=== PATIENT | female | born 1985 | race African-American/Black ===

== ENCOUNTER 2020-04-26 13:10 | Emergency (ER) | payer SELFPAY ==
--- NOTE | 2020-04-26 15:18 | PC.NURSE ---
x1 call for triage-no answer.
== END 2020-04-26 17:20 | disposition left against medical advice (07) ==
PROVIDERS: Emergency Provider Emergency Medicine
DX: M25.519 Pain in unspecified shoulder (principal); M54.2 Cervicalgia
CPT/HCPCS: 99281

== ENCOUNTER 2020-04-27 05:14 | Emergency (ER) | payer SELFPAY ==
--- NOTE | 2020-04-27 | XR_ITS ---
EXAMINATION: SHOULDER 4 VIEWS, RIGHT CLINICAL INFORMATION: Right shoulder pain following injury. COMPARISON: None. TECHNIQUE: AP views of the right shoulder were obtained in internal and external rotation. In addition, axillary and Y views were obtained. FINDINGS: There are no fractures or dislocations. The humeral head is seated within a well-formed glenoid. The AC joint is intact. XR/XR shoulder RT min 2V IMPRESSION: Unremarkable right shoulder radiographs.
[2020-04-27 05:27] VITALS: BP 104/65; PULSE 74; RESP 18; TEMP 36.8; O2SAT 99; BMI 25.0
--- NOTE | 2020-04-27 06:46 | ED.EXTPRO ---
HPI - Extremity Problem General Chief complaint: Extremity Injury, Upper Stated complaint: Shoulder pain Time Seen by Provider: 04/27/20 06:46 Source: patient Mode of arrival: ambulatory Limitations: no limitations History of Present Illness HPI Narrative: heavy lifting x 12 hours at her job feels tight area need her shower Complaint: extremity pain Onset (ago): day(s) (yesterday) Pain Consistency: constant Location: right Quality: aching Radiation: none Relieving factors: nothing Exacerbating factors: range of motion Associated symptoms: denies other symptoms Related Data Previous Rx's Medication Instructions Recorded cyclobenzaprine 10 mg PO TID PRN #14 tab 04/27/20 ibuprofen 600 mg PO Q6H PRN #30 tab 04/27/20 lidocaine 1 patch TOPICAL DAILY PRN #10 ea 04/27/20 Allergies Allergy/AdvReac Type Severity Reaction Status Date / Time codeine [CODEINE] Allergy Unknown NAUSEA AND Unverified 01/21/20 19:16 SWEATS Review of Systems Review of Systems: Constitutional : No Fever, No Chills ENT/Mouth : No Ear Pain, No Hoarseness, No sore throat Eyes: No Eye Pain, No Swelling, No Redness, No Foreign Body Cardiovascular : No Chest Pain, No SOB Respiratory : No Cough, No Dyspnea Gastrointestinal : No Nausea, No Vomiting, No Diarrhea, No abdominal Pain Genitourinary : No Dysuria, No Hematuria Musculoskeletal : positive joint pain, No Myalgias, No Joint Swelling Skin : No Skin lacerations, No rash Neuro : No Weakness, No Numbness, No Loss of Consciousness, No Dizziness, No Headache PMFSH Past Medical History Attestation statement: The following information was validated with the patient. Medical History (Updated 04/27/20 @ 06:47 by Mayra Anaya DO) No active medical problems Social History Social History Smoked in Last 30 Days: No Use of substances other than those prescribed or required for medical reasons: No Advance Directives: No Advance Directives Information Provided: No Physical Exam Vital Signs: Vital Signs: Last Vital Signs Temp 98.2 F 04/27/20 05:27 Pulse 74 04/27/20 05:27 Resp 18 04/27/20 05:27 BP 104/65 04/27/20 05:27 Pulse Ox 99 04/27/20 05:27 Body Mass Index 25.0 Appearance: Alert. Oriented X3. No acute distress. Eyes: Pupils equal, round and reactive to light. ENT: Pharynx normal. Neck: Normal inspection. Neck supple. CVS: Normal heart rate and rhythm. Pulses normal. Respiratory: No respiratory distress. Breath sounds normal. Abdomen: Soft and nontender. Skin: Skin warm and dry. Normal skin color. Normal skin turgor. Extremities: No lower extremity edema. No calf ttp normal ROM of R arm no crepitus, distal NV intact, spasm of R trapezius negative Spurling maneuver Neuro: Oriented X 3. No motor deficit. No sensory deficit. MDM - Extremity (Nontraumatic) MDM Narrative Medical decision making narrative: 34 yo female healthy repetitive lifting at her job causing R trapezius strain will need supportive medications, NV intact, no concern for trauma or fracture, stable for DC Discharge Plan Discharge Clinical Impression: Trapezius muscle strain Qualifiers: Encounter type: initial encounter Laterality: right Qualified Code(s): S46.811A - Strain of other muscles, fascia and tendons at shoulder and upper arm level, right arm, initial encounter Patient Disposition: Home, Self-Care Instructions: Muscle Strain (ED) Additional Instructions: return to ED for any worsening symptoms or concerns Prescriptions: New cyclobenzaprine 10 mg tablet 10 mg PO TID PRN (Reason: muscle spasm) Qty: 14 RF: 0 lidocaine 4 % adhesive patch,medicated 1 patch topical DAILY PRN (Reason: pain) Qty: 10 RF: 0 ibuprofen 600 mg tablet 600 mg PO Q6H PRN (Reason: pain) Qty: 30 RF: 0 Referrals: Physician,Unknown [Primary Care Provider] - 2 days (if not better) Stand Alone Forms: Work/School Release
== END 2020-04-27 07:49 | disposition home or self-care (01) ==
PROVIDERS: Emergency Provider Emergency Medicine
DX: S46.811A Strain of other muscles, fascia and tendons at shoulder and upper arm level, right arm, initial encounter (principal); X50.0XXA Overexertion from strenuous movement or load, initial encounter; Y93.9 Activity, unspecified; Y92.9 Unspecified place or not applicable; Y99.0 Civilian activity done for income or pay
CPT/HCPCS: 73030; 99283; 99284

== ENCOUNTER 2020-07-07 17:07 | Emergency (ER) | payer OTHER, SELFPAY ==
--- NOTE | ~2020-07-07 | XR_ITS ---
EXAMINATION: LUMBOSACRAL SPINE 3 VIEWS AND RIGHT KNEE 4 VIEWS CLINICAL INFORMATION: Pain COMPARISON: None TECHNIQUE: As above nonweightbearing FINDINGS: Lumbar spine: Loss of normal lumbar lordosis. No fracture subluxation. No spondylolysis. Minor scoliosis convex left. Transverse processes intact. Disc spaces preserved. Right knee: No effusion. Joint spaces maintained. No focal bony lesion. XR/XR lumbar spine 2-3V IMPRESSION: No focal abnormality.
--- NOTE | ~2020-07-07 | XR_ITS ---
EXAMINATION: LUMBOSACRAL SPINE 3 VIEWS AND RIGHT KNEE 4 VIEWS CLINICAL INFORMATION: Pain COMPARISON: None TECHNIQUE: As above nonweightbearing FINDINGS: Lumbar spine: Loss of normal lumbar lordosis. No fracture subluxation. No spondylolysis. Minor scoliosis convex left. Transverse processes intact. Disc spaces preserved. Right knee: No effusion. Joint spaces maintained. No focal bony lesion. XR/XR knee RT 2V IMPRESSION: No focal abnormality.
[2020-07-07 17:13] VITALS: BP 112/56; PULSE 92; RESP 18; TEMP 36.9; O2SAT 100
[2020-07-07 17:28] VITALS: BP 123/62; PULSE 86; RESP 16; TEMP 37.2; O2SAT 100; BMI 27.1
--- NOTE | 2020-07-07 17:31 | ED_ITS ---
HPI - Back Pain/Injury General Chief Complaint: Back Pain/Injury Stated Complaint: low back pain and knee pain Time Seen by Provider: 07/07/20 17:29 Source: patient Mode of arrival: ambulatory Limitations: no limitations History of Present Illness HPI Narrative: 31-year-old female with no significant past medical history presents for lower back pain and right knee pain. 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 She does have bilateral lower lumbar tenderness does not describe any specific injury or trauma. She has a very physically demanding job and lifts heavy objects on a daily basis. She does not report any symptoms indicating cauda equina, fevers, chills, chest pain, pressure, palpitations, shortness of breath, abdominal pain, abdominal distention, dysuria, hematuria, any other concerning symptoms. MD elicited complaint: back pain and other (Right knee pain) Onset (ago): month(s) (1) Timing: constant Severity: moderate Similar Symptoms Previously: Yes Quality: aching Radiation: none Exacerbating factors: movement and walking Context: while lifting and turning/twisting Associated symptoms: denies other symptoms Treatments prior to arrival: cold therapy and NSAIDS Work related injury: Yes Related Data Previous Rx's Medication Instructions Recorded cyclobenzaprine 10 mg PO TID PRN #14 tab 04/27/20 ibuprofen 600 mg PO Q6H PRN #30 tab 04/27/20 lidocaine 1 patch TOPICAL DAILY PRN #10 ea 04/27/20 cyclobenzaprine 10 mg PO TID PRN #20 tab 07/07/20 ibuprofen 600 mg PO Q8H PRN #60 tab 07/07/20 lidocaine 2 patch TOPICAL DAILY #30 ea 07/07/20 Allergies Allergy/AdvReac Type Severity Reaction Status Date / Time codeine [CODEINE] Allergy Unknown NAUSEA AND Unverified 01/21/20 19:16 SWEATS Review of Systems Review of Systems: Constitutional: No Fever, No Chills ENT/Mouth: No Ear Pain, No Hoarseness, No sore throat Eyes: No Eye Pain, No Swelling, No Redness, No Foreign Body Cardiovascular: No Chest Pain, No SOB Respiratory: No Cough, No Dyspnea Gastrointestinal: No Nausea, No Vomiting, No Diarrhea, No abdominal Pain Genitourinary: No Dysuria, No Hematuria Musculoskeletal: positive lower back and right knee pain, No Myalgias, No Joint Swelling Skin: No Skin lacerations, No rash Neuro: No Weakness, No Numbness, No Paresthesias, No Loss of Consciousness, No Dizziness, No Headache Psych: No Anxiety/Panic, No Depression Heme/Lymph: no easy bruising, no Lymphadenopathy Endocrine: No Polyuria, No Polydipsia Yes all other systems are reviewed and are negative [facility] Past Medical History Attestation statement: The following information was validated with the patient. Source: old records reviewed Medical History No active medical problems Social History Social History Alcohol intake: never Smoking Status: Current every day smoker Use of substances other than those prescribed or required for medical reasons: No Any prior treatment program specific to substance use: No Advance Directives: No Advance Directives Information Provided: Yes Physical Exam Vital Signs: Vital Signs: Last Vital Signs Temp 99 F 07/07/20 17:28 Pulse 86 07/07/20 17:28 Resp 16 07/07/20 17:28 BP 123/62 07/07/20 17:28 Pulse Ox 100 07/07/20 17:28 Body Mass Index 27.1 Appearance: Alert. Oriented X3. No acute distress. Eyes: Pupils equal, round and reactive to light. ENT: Pharynx normal. Neck: Normal inspection. Neck supple. CVS: Normal heart rate and rhythm. Pulses normal. Respiratory: No respiratory distress. Breath sounds normal. Abdomen: Soft and nontender. Skin: Skin warm and dry. Normal skin color. Normal skin turgor. Extremities: Normal range of motion, tenderness noted to the medial and lateral right patella. Musculoskeletal tenderness to palpation to bilateral lumbar, no vertebral tenderness to palpation. Neuro: No motor deficit. No sensory deficit. Course Course Course Narrative: 35-year-old female with right knee and lower back pain. 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 Will order x-rays, provide Lidoderm patch and ibuprofen. 6:34 p.m. x-rays are negative for fracture, effusion or acute finding. Plan of care is to discharge home with supportive measures. Patient verbalized understanding of and agrees plan of care to discharge home. MDM - Back Pain/Injury MDM Narrative Medical decision making narrative: Knee effusion, knee sprain, ligament injury Differential Diagnosis Differential diagnosis: Likely lumbar radiculopathy and strain of lumbar region Medical Records Attestation: I reviewed the patient's medical records. Lab Data Attestation: I reviewed the patient's lab results. Imaging Data Lumbar and right knee x-ray: Attestation: I personally reviewed and interpreted this imaging study as follows: Radiologist's impression: EXAMINATION: LUMBOSACRAL SPINE 3 VIEWS AND RIGHT KNEE 4 VIEWS CLINICAL INFORMATION: Pain COMPARISON: None TECHNIQUE: As above nonweightbearing FINDINGS: Lumbar spine: Loss of normal lumbar lordosis. No fracture subluxation. No spondylolysis. Minor scoliosis convex left. Transverse processes intact. Disc spaces preserved. Right knee: No effusion. Joint spaces maintained. No focal bony lesion. XR/XR lumbar spine 2-3V IMPRESSION: No focal abnormality. Discharge Plan Discharge Clinical Impression: Strain of lumbar region Qualifiers: Encounter type: initial encounter Qualified Code(s): S39.012A - Strain of muscle, fascia and tendon of lower back, initial encounter Strain of right patellar tendon Qualifiers: Encounter type: initial encounter Qualified Code(s): S86.811A - Strain of other muscle(s) and tendon(s) at lower leg level, right leg, initial encounter Patient Disposition: Home, Self-Care Instructions: Acute Low Back Pain (ED), Knee Pain (ED), Tendinitis (ED), Patellar Tendinitis (ED) Additional Instructions: You were evaluated for right knee pain and lower back pain. X-rays negative for acute findings requiring emergent intervention. The right knee pain could be a tendon injury. If pain persists please follow-up with orthopedics. We prescribed Lidoderm patches, cyclobenzaprine, and ibuprofen. Use these medications as directed. Cyclobenzaprine as a muscle relaxer and has high risk for falls, decreased reaction time, and drowsiness. Do not drive or operate machinery while taking this medication. Thank you for choosing this emergency department for evaluation. Please follow-up with primary care physician as needed. Return to the emergency department for any new, concerning, or worsening symptoms. Prescriptions: New lidocaine 5 % adhesive patch,medicated 2 patch topical DAILY Qty: 30 RF: 0 cyclobenzaprine 10 mg tablet 10 mg PO TID PRN (Reason: muscle spasm) Qty: 20 RF: 0 ibuprofen 600 mg tablet 600 mg PO Q8H PRN (Reason: pain) Qty: 60 RF: 0 No Action cyclobenzaprine 10 mg tablet 10 mg PO TID PRN (Reason: muscle spasm) Qty: 14 RF: 0 lidocaine 4 % adhesive patch,medicated 1 patch topical DAILY PRN (Reason: pain) Qty: 10 RF: 0 ibuprofen 600 mg tablet 600 mg PO Q6H PRN (Reason: pain) Qty: 30 RF: 0 Referrals: Ida Blackman PA-C [Physician Wet Wash Assembler] - 2 days (Question of right patellar tendon injury) Stand Alone Forms: Work/School Release Interventions: ED Discharge Assessment Last Done: 07/07/20 20:12 Discharge Date/Time: 07/07/20 19:00
[2020-07-07] MEDS: Ibuprofen 600 MG TABLET PO (18:25)
[2020-07-07] MEDS: Lidocaine 4 % Patch ADH..PATCH 2 PATCH TRANSDERMA (18:25)
== END 2020-07-07 19:00 | disposition home or self-care (01) ==
PROVIDERS: Emergency Provider Emergency Medicine
DX: S39.012A Strain of muscle, fascia and tendon of lower back, initial encounter (principal); S86.811A Strain of other muscle(s) and tendon(s) at lower leg level, right leg, initial encounter; M25.561 Pain in right knee; Z79.899 Other long term (current) drug therapy; F17.200 Nicotine dependence, unspecified, uncomplicated; X50.0XXA Overexertion from strenuous movement or load, initial encounter; X50.3XXA Overexertion from repetitive movements, initial encounter; Y93.9 Activity, unspecified; Y92.9 Unspecified place or not applicable; Y99.0 Civilian activity done for income or pay; Z71.6 Tobacco abuse counseling
CPT/HCPCS: 72100; 73560; 99284

== ENCOUNTER 2021-02-23 06:27 | Emergency (ER) | payer OTHER, SELFPAY ==
[2021-02-23 06:37] VITALS: BP 124/55; RESP 16; TEMP 36.3; O2SAT 100; BMI 25.0
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
== END 2021-02-23 08:19 | disposition home or self-care (01) ==
PROVIDERS: Emergency Provider Emergency Medicine Emergency Medical Services
DX: S16.1XXA Strain of muscle, fascia and tendon at neck level, initial encounter (principal); M54.2 Cervicalgia; M54.50 Low back pain, unspecified; X50.0XXA Overexertion from strenuous movement or load, initial encounter; Y93.9 Activity, unspecified; Y92.410 Unspecified street and highway as the place of occurrence of the external cause; Y99.9 Unspecified external cause status; Z79.899 Other long term (current) drug therapy
CPT/HCPCS: 99283

== ENCOUNTER 2025-01-28 10:56 | Outpatient (AMB) | payer OTHER, SELFPAY ==
[2025-01-28 11:07] VITALS: BMI 25.8
--- NOTE | 2025-01-28 11:07 | MHC.OFFVIS ---
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 Patient reports he neck pain is primarily in the neck and radiates into her right shoulder and down to her right hand.. This is from a work injury that occurred on 12/15/24. The patient states that she had a similar mail injury which affected her left side in the past. She reports mild discomfort in her left shoulder. She reports intermittent weakness in her right arm as well. She has tried Tylenol, anti-inflammatory medicines and muscle relaxants which gave her minimal relief. 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 Physical Exam Vital Signs: BMI result Body Mass Index 25.8 Const Other: Well-nourished well-developed very friendly female awake alert and oriented x3 in no acute distress Neck Other: Cervical spine examination shows right-sided paraspinal muscle tenderness, pain with range of motion, positive Spurling's test, 4/5 strength with testing of her right wrist extensors and right elbow flexors when compared to 5/5 strength on her left side Results Reviewed Results Reviewed: X-rays of the patient's right shoulder show moderate to severe acromioclavicular joint narrowing, a type 2 acromion, no acute bony abnormalities X-rays of the patient's cervical spine show diffuse degenerative disc disease, no acute bony abnormalities Assessment & Plan Assessment & Plan (1) Neck pain on right side: Code(s): M54.2 - Cervicalgia Category: Medical Plan Ms. Cristina presents with progressively worsening neck pain which radiates down her right arm to her right hand as well as intermittent right upper extremity weakness possibly due to cervical stenosis versus a disc herniation. Thus, I will send the patient for an MRI of her cervical spine for further evaluation. I will contact her by phone once the MRI results are available. She also has right shoulder pain due to impingement syndrome and possible rotator cuff tearing. We will hold off on a shoulder MRI for now. The patient will continue with her activity modifications in the meantime. I spent 20 minutes in reviewing the patient's records and imaging studies, seeing the patient and documenting in the medical record. Orders: Orders XR cervical spine 2V 01/28/25 M54.2 - Cervicalgia MR cervical spine wo con Today M54.2 - Cervicalgia XR shoulder RT min 2V 01/28/25 M25.511 - Pain in right shoulder Medications: Discontinued cyclobenzaprine Discontinued Reason: Patient Completed Course 10 mg PO TID PRN 20 tabs 0RF muscle spasm lidocaine 5% leave on most painful area for up to 12 hrs Discontinued Reason: Patient Completed Course 2 patches topical DAILY 30 ea 0RF cyclobenzaprine Discontinued Reason: Patient Completed Course 10 mg PO TID PRN 14 tabs 0RF muscle spasm lidocaine 4% may leave on for up to 12 hrs Discontinued Reason: Patient Completed Course 1 patch topical DAILY PRN 10 ea 0RF pain lidocaine 5% leave on most painful area for up to 12 hrs Discontinued Reason: Patient Completed Course 1 patch topical DAILY 15 ea 0RF cyclobenzaprine Discontinued Reason: Patient Completed Course 10 mg PO TID PRN 14 tabs 0RF muscle spasm Coding Level of Care Code New Pt Level 3 (46881) Complex EM visit Add On G2211 Diagnoses Neck pain on right side M54.2
== END 2025-01-28 11:37 | disposition home or self-care (01) ==
LOC: HO.HOS 10:56
PROVIDERS: Visit Provider Orthopaedic Surgery
DX: M54.2 Cervicalgia (principal)
CPT/HCPCS: 99204; G2211

== ENCOUNTER → 2025-01-28 10:58 | Outpatient (BNV) | payer OTHER, SELFPAY | PROVIDERS: Visit Provider Family Medicine | DX: M54.2 Cervicalgia (principal); M25.511 Pain in right shoulder | CPT/HCPCS: 72040; 73030 ==

== ENCOUNTER 2025-01-28 11:50 | Outpatient (REF) | payer OTHER, SELFPAY ==
--- NOTE | ~2025-01-28 | XR_ITS ---
CLINICAL HISTORY: M54.2 - Cervicalgia 4 views cervical spine Comparison: None provided Findings: Normal alignment. Multilevel intervertebral disc space narrowing and osteophyte formation. Prevertebral soft tissues within normal limits. IMPRESSION: No acute findings. This document has been electronically signed by: Jeff Jensen DO on 01/29/2025 12:36:00
--- NOTE | ~2025-01-28 | XR_ITS ---
CLINICAL HISTORY: M25.511 - Pain in right shoulder 2 view right shoulder Comparison: None provided Findings: No fractures or dislocations. No significant loss of joint space or osteophytes. No erosions. No radiopaque foreign body. IMPRESSION: 1. No acute findings This document has been electronically signed by: Jeff Jensen DO on 01/29/2025 12:35:46
--- OUTSIDE RECORDS SUMMARY | 2025-01-29 13:41 | XMS_ITS | Clinical Summary ---
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 Use in each nostril as directed 10/28/2023 Active valACYclovir (VALTREX) 500 mg tablet Take 1 Tablet by mouth daily. 10/28/2023 Active naproxen (NAPROSYN) 500 mg tablet Take 1 Tablet by mouth 2 times daily as needed for Pain. 03/12/2023 Active norethindrone (BROOKE,FLORINA,H EATHER,MICRONOR ) 0.35 mg tablet Take 1 Tablet by mouth daily for 28 doses. 12/24/2022 Active cholecalciferol (VITAMIN D-3) 25 mcg (1,000 unit) tablet Take by mouth. 10/10/2022 Active hydrOXYzine HCL (ATARAX) 10 mg tablet Take 1 Tablet by mouth 3 times daily as needed for Itching. 10/10/2022 Active oxyBUTYnin XL (DITROPAN-XL) 5 mg 24 hr tablet Take 1 Tablet by mouth daily. 03/01/2022 Active diclofenac (VOLTAREN) 75 mg EC tabletIndicatio ns:Tendinitis of left quadriceps tendon Take 1 tablet (75 mg total) by mouth 2 (two) times a day. Do not crush, chew, or split. 60 tablet 04/18/2024 Active cyclobenzaprine (FLEXERIL) 10 mg tablet Take 1 tablet (10 mg total) by mouth 2 (two) times a day if needed for muscle spasms for up to 5 days. 10 tablet 07/07/2024 Active Active Problems Problem Noted Date Diagnosed Date History of COVID-19 09/15/2021 Chronic benign neutropenia (CMS/HCC V24) 021 Overview (03/24/2024): Dr. Greer, 2019 Vitamin D deficiency 10/19/2019 Low iron 02/01/2017 Low vitamin B12 level 02/01/2017 Allergic rhinitis due to allergen 12/01/2014 Tobacco use disorder 12/01/2014 Lesion of liver 06/29/2014 Overview (03/24/2024): [facility] GI HSV-2 (herpes simplex virus 2) infection 015 PTSD (post-traumatic stress disorder) 06/29/2014 Anxiety 06/29/2014 Hyperlipemia 06/29/2014 Immunizations Name Administration Dates Next Due Hep B, Unspecified 10/31/2011 Tdap Tetanus diptheria acell ular pertussis (Boostrix; Adacel) 7yo and older 01/30/2017 Surgical History Surgery Date Site/Laterality Comments SECTION 2002 PROCEDURE: HISTORICAL DELIVERY Medical History Medical History Date Comments Lesion of liver 06/29/2014 DX:Lesion of jaycee er HSV-2 (herpes simplex virus 2) infection 06/29/2014 DX:HSV-2 (herpes simplex vir us 2) infection PTSD (post-traumatic stress disorder) 06/29/2014 DX:PTSD (post-traumatic stress disorder) Anxiety 06/29/2014 DX:Anxiety Chronic benign neutropenia ( CMS/HCC V24) 10/28/2020 DX:Chronic benign neutropeni a (HCC); COMMENT: Dr. Greer, 2019 Family History Medical History Relation Name Comments Arthritis Father Other: gout Father Dementia Maternal Grandmother Arthritis Mother Osteoporosis Mother thyroid disorde r Diabetes Paternal Grandfather Diabetes Paternal Grandmother Blindness Neg Hx cat, glau, mac degen, strabismus Relation Name Status Comments Father Alive Maternal Grandfather Maternal Grandmother Mother Alive Paternal Grandfather Paternal Grandmother Social History Tobacco Use Types Packs/Day Years Used Date Smoking Tobacco: Every Day Cigarettes Smokeless Tobacco: Never Alcohol Use Standard Drinks/Week Comments Yes 0 (1 standard drink = 0.6 oz pur e alcohol) socially Housing Instability Answer Date Recorde d Are you worried that in the next 2 months you may not have stable housing? No 06/16/2024 Food Access & Nutrition Answer Date Rec orded Do you have access to a vari ety of food including fruits and vegetables? Yes 06/16/2024 Access to Healthcare Answer Date Record ed Within the last 3 months, ho w many times did you visit the emergency department for your medical care? 0 06/16/2024 Health Literacy Answer Date Recorded How often do you need to hav e someone help you when you read instructions, pamphlets, or other written material from your doctor or pharmacy? Rarely 06/16/2024 Caregiver: How often do you need to have someone help you when you read instructions, pamphlets, or other written material from your doctor or pharmacy? Not on file 06/16/2024 Financial Risk Answer Date Recorded How hard is it for you to pa y for the very basics like food, housing, medical care, and air conditioning / heating? Hard 06/16/2024 Transportation Answer Date Recorded Has the lack of transportati on kept you from meetings, work, or from getting things needed for daily living? No Has the lack of transportati on kept you from medical appointments or from getting medications? No 06/16/2024 Social Isolation Answer Date Recorded How often do you feel lonely or isolated from th ose around you? Always 06/16/2024 Food Risk Answer Date Recorded Within the past 12 months we worried whether our food would run out before we got money to buy more. Sometimes true 025 Within the past 12 months th e food we bought just didn't last and we didn't have money to get more. Often true 06/16/2024 Dependent Care Answer Date Recorded Do you need help finding or paying for care for your loved ones. For example, early childhood specialist or elderly care for an older adult? No 06/16/2024 Education Answer Date Recorded Do you think completing more education or training, like finishing a GED, going to college, or learning a trade, would be helpful for you? No 06/16/2024 Employment and Income Answer Date Recor ded During the last four weeks, have you been actively looking for work? No 06/16/2024 Living Situation Answer Date Recorded What is your living situation? 0 06/16/2024 Comments No Sex and Gender Information Value Date Recorded Sex Assigned at Female 06/02/2024 9:01 PM EST Legal Sex Female 3:59 AM EST Gender Identity Female 06/02/2024 9:01 PM EST Sexual Orientation Straight 06/02/2024 9: 01 PM EST Obstetrics History Para Term AB IAB SAB Ectopic Multiple Livin g Live Births 1 1 1 1 1 Date Outcome GA Total Labor Labor//3rd Weight Sex Type Anes PTL Jaycee A1 A5 Name Clin 004 Term 3175 g (112 oz) M CS-Un spec Genera l Livin g Delivery Location:[facility] Comments:Failure to pr ogress Last Filed Vital Signs Vital Sign Reading Time Taken Comments Blood Pressure 134/83 07/07/2024 6:49 AM EST Pulse 90 07/07/2024 6:49 AM EST Temperature 36.4 C (97.5 F) 07/07/2024 6:49 AM EST Respiratory Rate 16 07/07/2024 6:49 AM EST Oxygen Saturation 100% 07/07/2024 6:49 AM EST Inhaled Oxygen Concentration - - Weight 72.6 kg (160 lb) 07/07/2024 6:49 AM EST Height 170.2 cm (5' 7 ) 07/07/2024 6:49 AM EST Body Mass Index 25.06 07/07/2024 6:49 AM EST Plan of Treatment Health Maintenance Due Date Last Done Comments COVID-19 Vaccine (#1) 1991 Pneumococcal Vaccine: Pediatrics (0 to 5 Years) and At-Risk Patients (6 to 49 Years) (1 of 2 - PCV) 2005 Hepatitis B Vaccines (2 of 3 - 19+ 3-dose series) 11/28/2011 10/31/2011 Influenza Vaccine (#1) 2025 Social Influencers of Health Screening 06/16/2025 06/16/2024 DTaP,Tdap,and Td Vaccines (2 - Td or Tdap) 01/30/2027 01/30/2017 Cervical Cancer Screening: HPV 10/13/2027 10/12/2022 Cholesterol Screening (Lipid Panel) 10/13/2027 10/12/2022 HIV Screening Completed 01/31/2017 Hepatitis C Screening Completed 01/31/2017 Depression Screening Completed 06/16/2024, 10/27/2020 HIB Vaccines Aged Out No longer eligi ble based on patient's age to complete this topic HPV Vaccines Aged Out No longer eligi ble based on patient's age to complete this topic Hepatitis A Vaccines Aged Out No long er eligible based on patient's age to complete this topic IPV Vaccines Aged Out No longer eligi ble based on patient's age to complete this topic MMR Vaccines Aged Out No longer eligi ble based on patient's age to complete this topic Meningococcal ACWY Vaccine Aged Out N o longer eligible based on patient's age to complete this topic Meningococcal B Vaccine Aged Out No l onger eligible based on patient's age to complete this topic RSV Immunization Patients Under 20 months Aged Out No longer eligible b ased on patient's age to complete this topic Varicella Vaccines Aged Out No longer eligible based on patient's age to complete this topic Procedures Procedure Name Priority Date/Time Associated Diagnosis Comments HPV Routine 10/12/2022 LIPID PANEL Routine 10/12/2022 DEPRESSION SCREENING Routine 10/27/2020 HEPATITIS C SCREENING Routine 01/31/2017 HIV SCREENING Routine 01/31/2017 from Last 3 Months or Most Recently Relevant to Health Maintenance Results * Cervical Cancer Screening: HPV (10/12/2022) Cervical Cancer Screening: HPV No interpretation , abstracted Historical Provider MD HEALTH MAINTENANCE Final Result * (ABNORMAL) Lipid panel (10/12/2022) [facility] LDL/HDL Ratio 2 0 - 4 Triglycerides 30 0 - 150 mg/dL Cholesterol 211(A) 0 - 200 mg/dL HDL 96 >=40 mg/dL LDL Cholesterol 109(A) 0 - 100 mg/dL Blood Venous blood specimen / Unknown Result [facility] Provider LAB BLOOD ORDERABLES Sona l Result * Depression Screening (10/27/2020) [facility] Depression Screening Abstracted Result [facility] Provider HEALTH MAINTENANCE Final Result * HIV Screening (01/31/2017) [facility] HIV Screening Abstracted Result [facility] Provider HEALTH MAINTENANCE Final Result * Hepatitis C Screening (01/31/2017) [facility] Hepatitis C Screening Abstracted Result 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
== END 2025-01-28 11:51 | disposition home or self-care (01) ==
LOC: HO.HOSX 11:50
PROVIDERS: Visit Provider Orthopaedic Surgery
DX: M54.2 Cervicalgia (principal); M25.511 Pain in right shoulder
CPT/HCPCS: 72040; 73030; 99202